=== PATIENT | female | born 1975 | race American Indian/Alaskan Native ===

== ENCOUNTER 2018-05-12 14:40 | Emergency (ER) | payer MEDICAID, OTHER ==
--- NOTE | 2018-05-12 15:17 | Emergency Department Report ---
Blank Doc - Documentation Documentation: This is a 42-year-old female that presents with right arm pain and URI symptoms. Stated started in the elbow area and radiates to 1-3 fingers. Denies any trauma. This initial assessment/diagnostic orders/clinical plan/treatment(s) is/are subject to change based on patient's health status, clinical progression and re- assessment by fellow clinical providers in the ED. Further treatment and workup at subsequent clinical providers discretion. Patient/guardians urged not to elope from the ED as their condition may be serious if not clinically assessed and managed. Initial orders include: 1- Patient sent to [facility] for further evaluation and treatment 2- CXR
--- NOTE | 2018-05-12 16:32 | XRay Report ---
PROCEDURE: XR CHEST ROUTINE 2V TECHNIQUE: PA and lateral chest HISTORY: cough COMPARISONS: No priors FINDINGS: Cardiomediastinal silhouette within normal limits. No evidence of airspace consolidation or pleural effusions. The pulmonary vasculature is within normal limits. IMPRESSION: No radiographic evidence of acute disease.. This document is electronically signed by Farrukh Cronin MD., May 12 2018 04:30:13 PM ET
--- NOTE | 2018-05-12 17:56 | Emergency Department Report ---
Upper Extremity - HPI Chief Complaint: Upper Respiratory Infection Stated Complaint: R ARM PAIN/COUGH CONGESTION Time Seen by Provider: 05/12/18 15:14 Upper Extremity: Right Hand, Right Ring Finger, Right Little Finger Occurred When: >5 Days Severity: moderate Symptoms: Yes Pain with Movement, Yes Numbness, No Deformity, No Limited Range of Movement, No Weakness, No Swelling, No Bruising/Ecchymosis Other History: 42F PMH lymphoma treat at [facility] in 2016/2017 in remission s/p chemo p/w c/o approximately 1-1/2-2 months of sinus congestion and dry cough. Patient denies fevers chills nausea vomiting chest pain palpitations. States that her nasal passages feel dry and congested. Patient also incidentally states that over the last few weeks she has noticed intermittent numbness and pain of her right fourth and fifth fingers with some discomfort while flexing her right fourth and fifth fingers. Patient denies any weakness to any extremity other than to her right fourth and fifth fingers or paresthesias in any other body part. Denies any slurred speech or facial weakness. Patient denies any neck pain recent head neck or upper extremity trauma.. Pt is a smoker, denies etoh or other drug use. ED Review of Systems ROS: Stated complaint: R ARM PAIN/COUGH CONGESTION Other details as noted in HPI Constitutional: denies: chills, fever Eyes: denies: eye pain, eye discharge, vision change ENT: denies: ear pain, throat pain Respiratory: denies: cough, shortness of breath, wheezing Cardiovascular: denies: chest pain, palpitations Endocrine: no symptoms reported Gastrointestinal: denies: abdominal pain, nausea, diarrhea Genitourinary: denies: urgency, dysuria, discharge Musculoskeletal: denies: back pain, joint swelling, arthralgia Skin: denies: rash, lesions Neurological: paresthesias. denies: headache, weakness Psychiatric: denies: anxiety, depression Hematological/Lymphatic: denies: easy bleeding, easy bruising ED Past Medical Hx - Past Medical History Additional medical history: lymphoma-remission - Surgical History Additional Surgical History: tubiligation, - Social History Smoking Status: Current Every Day Smoker Substance Use Type: None - Medications Home Medications: Home Medications Medication Instructions Recorded Confirmed Last Taken Type Doxycycline [Vibramycin CAP] 100 mg PO Q12HR #14 capsule 05/12/18 Unknown Rx Ibuprofen [Motrin] 600 mg PO Q8H PRN #20 tablet 05/12/18 Unknown Rx Upper Extremity Exam - Exam General: Vital signs noted. No distress. Alert and acting appropriately. Head and Torso: Yes HEENT Abnormality (patient has bilateral nasal congestion), No Neck Tenderness, No Chest/Lungs Abnormality, No Abdominal Tenderness, No Back Tenderness Shoulder Exam: Yes Normal Range of Motion in Shoulder, No Shoulder Tenderness, No Clavicle Tenderness, No Shoulder Deformity, No AC Joint Tenderness Arm Exam: No Arm/Humerus Tenderness, No Arm Deformity Elbow: Yes Normal Range of Motion in Elbow (pronation supination flexion and extension clinically intact), No Elbow Tenderness (positive Phalen and Tinel sign. Positive pain with flexion and extension right elbow), No Elbow Deformity Forearm: No Forearm Tenderness, No Forearm Deformity, No Pain with Pronation, No Pain with Supination Wrist: Yes Normal ROM in Wrist, No Wrist Tenderness, No Wrist Deformity, No Snuffbox Tenderness, No Pain with Axial Thumb Compression Hand: Yes Normal ROM in Digit(s), No Hand Tenderness, No Hand Deformity, No Digit Tenderness, No Digit(s) Deformity, No Tendon Dysfunction CMS Exam: Yes Normal Distal Pulses (distal capillary refill less than 1 second o n digits right upper extremity. Distal radial brachial and ulnar pulses strong to palpation), Yes Normal Capillary Refill, Yes Normal Distal Sensation (patient has slightly impaired sensation along lateral edge of right fourth and fifth digits), No Broken Skin Hand L/R Front: 1 - Patient reports numbness here Hand L/R Back: 1 - Patient reports some numbness here with occasional tingling ED Course Vital Signs 05/12/18 15:17 Temperature 98.8 F Pulse Rate 104 H Respiratory 20 Rate Blood Pressure 167/85 O2 Sat by Pulse 98 Oximetry ED Medical Decision Making - Medical Decision Making A/P: Sinusitis, ulnar neuropathy 1-patient has no overt neurological deficits to suggest TIA or stroke 2-patient does have clinical signs of ulnar neuropathy with paresthesias intermittently in the right fourth and fifth digits along the lateral aspect of right palm and lateral aspect of fourth and fifth digits. 3-will treat patient empirically for sinusitis she complains of sinus congestion and dry cough for over one month. Intranasal decongestants and course of doxycycline as patient is pen allergic 4- follow-up with neurology and primary care Critical care attestation.: If time is entered above; I have spent that time in minutes in the direct care of this critically ill patient, excluding procedure time. ED Disposition Clinical Impression: Ulnar neuropathy of right upper extremity Sinusitis Qualifiers: Sinusitis location: frontal Chronicity: acute Recurrence: non-recurrent Qualified Code(s): J01.10 - Acute frontal sinusitis, unspecified Disposition: TO HOME OR SELFCARE Is pt being admited?: No Does the pt Need Aspirin: No Condition: Stable Instructions: Sinusitis (ED), Acute Bacterial Rhinosinusitis (ED), Cubital Tunnel Syndrome (ED), Splint Care (ED), Paresthesia (ED) Prescriptions: Ibuprofen [Motrin] 600 mg PO Q8H PRN #20 tablet PRN Reason: Pain Doxycycline [Vibramycin CAP] 100 mg PO Q12HR #14 capsule Referrals: LUDWIN LAURENT MD [Primary Care Provider] [facility] - 3-5 Days IGLESIA RAMOS MD [Staff Physician] - 3-5 Days Time of Disposition: 19:11
--- NOTE | 2018-05-12 18:27 | Vascular Lab Report ---
PROCEDURE: VL VENOUS DUPLEX LE RT TECHNIQUE: Grayscale, color flow and Doppler tracings obtained of the veins of the right upper extre mity. HISTORY: right arm swelling COMPARISONS: No priors FINDINGS: The right internal jugular, subclavian, axillary, brachial, basilic, radial and ulnar veins, as well as the cephalic vein are patent. There is no evidence of deep venous thrombosis. IMPRESSION: No evidence of deep venous thrombosis seen in the right upper extremity.. This document is electronically signed by Farrukh Cronin MD., May 12 2018 06:24:49 PM ET
[2018-05-12 19:31] VITALS: BP 149/79
== END 2018-05-12 19:30 | disposition home or self-care (01) ==
LOC: ED 14:40
DX: J01.10 Acute frontal sinusitis, unspecified (principal); G56.21 Lesion of ulnar nerve, right upper limb; F17.200 Nicotine dependence, unspecified, uncomplicated; Z98.51 Tubal ligation status
CPT/HCPCS: 71046